=== PATIENT | female | born 1985 | race Caucasian/White ===

== ENCOUNTER 2019-11-26 08:07 | Inpatient (IN) | payer BC ==
[2019-11-25 11:18] VITALS: BMI 44.5
[2019-11-26] MEDS ORDERED: CITRIC ACID-SODIUM CITRATE 15 ML CUP PO ONE (08:26)
[2019-11-26] MEDS ORDERED: LACTATED RINGERS 1,000 ML IV ONE (08:26)
[2019-11-26] MEDS ORDERED: ceFAZolin 3 GM in SODIUM CHLORIDE 0.9% 100 ML IVPB ONE (08:26)
[2019-11-26 08:57] LABS: Basophils % (A) 0 %; Eosinophils # (A) 0.1 k/uL (0-0.7); Eosinophils % (A) 1 %; HCT 37.4 % (34.0-46.0); HGB 11.8 gm/dL (11.4-16.0); Hypochromasia Moderate; Lymphocytes # (A) 1.6 k/uL (1.0-4.8); Lymphocytes % (A) 12 %; MCH 26.1 pg (25.0-35.0); MCHC 31.5 g/dL (31.0-37.0); MCV 82.8 fL (80.0-100.0); Mean Platelet Volume 8.6; Monocytes # (A) 0.6 k/uL (0-1.0); Monocytes % (A) 5 %; Neutrophils # (A) 10.4 k/uL (1.3-7.7); Neutrophils % (A) 80 %; Platelet Count 267 k/uL (150-450); RBC 4.51 m/uL (3.80-5.40); RDW 14.8 % (11.5-15.5); WBC 12.9 k/uL (3.8-10.6)
--- NOTE | 2019-11-26 09:25 | P.HPOB ---
History of Present Illness H&P Date: 11/26/19 Chief Complaint: 40-4/7 weeks, large obstructing uterine fibroid The patient is a 34-year-old 1 para 0 who is admitted at 40-4/7 weeks as established by in vitro fertilization dating parameters. She is admitted for primary low-transverse section and elective fashion secondary to a known very large, approximately 15 cm right lower anterior lateral fibroid which appears to be obstructing any possibility of labor. The head is noted to be below the fibroid from but it is likely to obstruct further progress. Her cervix has remained unfavorable with the head very high in the pelvis. After discussion, the patient has agreed that the likelihood of section in the presence of an induction is very high and has agreed to forego induction in favor of primary low-transverse section. Her has otherwise been uncomplicated. She is Rh- and received RhoGAM at 28 weeks. Group B strep status is negative. Obstetrical history: 1 para 0 with current statistics listed in history of present illness. EDC of 11/22/2019 was established by in vitro fertilization dating parameters. Laboratory workup demonstrates a blood type of B- with a negative antibody screen. Rubella status is immune. The remainder of the laboratory workup was within normal limits. Early Glucola as well as second trimester Glucola was within normal limits. Group B strep status is negative. Gynecologic history: Unremarkable with no history of any infections to include STDs. Review of Systems Review of systems is confined to history of present illness. Past Medical History Past Medical History: GERD/Reflux, Thyroid Disorder Additional Past Medical History / Comment(s): hx migraines, took metformin 08/09- 06/10, " induced thryoid problem", History of Any Multi-Drug Resistant Organisms: None Reported Additional Past Surgical History / Comment(s): IVF Past Anesthesia/Blood Transfusion Reactions: Motion Sickness Past Psychological History: No Psychological Hx Reported Smoking Status: Never smoker Past Alcohol Use History: None Reported Past Drug Use History: None Reported - Past Family History Mother Family Medical History: No Reported History Medications and Allergies Home Medications Medication Instructions Recorded Confirmed Type Levothyroxine Sodium [Synthroid] 50 mcg PO DAILY 11/25/19 11/25/19 History Omeprazole [PriLOSEC] 40 mg PO DAILY 11/25/19 11/25/19 History Pnv No.95/Ferrous Fum/Folic AC 1 each PO DAILY 11/25/19 11/25/19 History [ Multivitamin Tablet] Allergies Allergy/AdvReac Type Severity Reaction Status Date / Time No Known Allergies Allergy Verified 11/25/19 11:10 Exam Vital Signs Temp Pulse Resp BP Pulse Ox 11/26/19 08:18 98.7 F 115 H 16 137/72 98 Intake and Output 11/25/19 11/26/19 11/26/19 22:59 06:59 14:59 Other: Weight 132.903 kg In general, this is a obese white female in no acute distress. Her heart has a regular rhythm and rate without murmur. Her lungs are clear to auscultation bilaterally in all garcia. Her abdomen is gravid, nondistended, has normal active bowel sounds, is soft, nontender, and does have a palpable fibroid on the right lower portion of the uterus anteriorly. Her extremities are without any cyanosis, clubbing, or significant edema and are nontender to palpation bilaterally. Digital cervical examination is deferred. Results Result Diagrams: 11/26/19 08:44 Abnormal Lab Results - Last 24 Hours (Table) 11/26/19 Range/Units 08:44 WBC 12.9 H (3.8-10.6) k/uL Neutrophils # 10.4 H (1.3-7.7) k/uL Assessment and Plan (1) Post-dates Current Visit: Yes Status: Acute Code(s): O48.0 - POST-TERM SNOMED Code(s): 51579466 (2) Obstructed labor Current Visit: Yes Status: Acute Code(s): O66.9 - OBSTRUCTED LABOR, UNSPECIFIED SNOMED Code(s): 703124670 (3) Fibroid uterus Current Visit: Yes Status: Acute Code(s): D25.9 - LEIOMYOMA OF UTERUS, UNSPECIFIED SNOMED Code(s): 85947458 Plan: The patient is admitted for primary low-transverse section secondary to the fibroid which is thought to be obstructive to the labor process. The risks and complications have been thoroughly discussed and the patient has understood and agreed to proceed.
[2019-11-26] MEDS ORDERED: PHENYLEPHRINE-0.9% NACL SYG 1 MG/10 ML SYRINGE ONE (10:01)
[2019-11-26] MEDS ORDERED: MORPHINE SULFATE (PF) 0.3 MG/0.3 ML SYR ONE (10:01)
[2019-11-26] MEDS ORDERED: PROPOFOL 10 MG/ML 20 ML VIAL IV ONE (10:01)
[2019-11-26] MEDS ORDERED: KETOROLAC 15 MG/ML 1 ML VIAL ONE (10:01)
[2019-11-26] MEDS ORDERED: OXYTOCIN 10 UNIT/ML 1 ML VIAL ONE (10:01)
[2019-11-26] MEDS ORDERED: ONDANSETRON 4 MG/2 ML VIAL ONE (10:01)
[2019-11-26] MEDS ORDERED: NALOXONE 0.4 MG/ML 1 ML VIAL IV PRN (11:05)
[2019-11-26] MEDS ORDERED: diphenhydrAMINE 50 MG CAP PO PRN (11:05)
[2019-11-26] MEDS ORDERED: LANOLIN CREAM 5 GM TUBE TOPICAL PRN (11:05)
[2019-11-26] MEDS ORDERED: diphenhydrAMINE 25 MG CAP PO PRN (11:05)
[2019-11-26] MEDS ORDERED: HYDROcodone/APAP 5-325MG 1 EACH TAB PO PRN (11:05)
[2019-11-26] MEDS ORDERED: METOCLOPRAMIDE 5 MG/ML 2 ML VIAL IVP PRN (11:05)
[2019-11-26] MEDS ORDERED: ONDANSETRON 4 MG/2 ML VIAL IVP PRN (11:05)
[2019-11-26] MEDS ORDERED: ZOLPIDEM 5 MG TAB PO PRN (11:05)
[2019-11-26] MEDS ORDERED: diphenhydrAMINE 50 MG/ML 1 ML VIAL IVP PRN ×2 (11:05)
[2019-11-26] MEDS ORDERED: SIMETHICONE 80 MG CHEWABLE PO PRN (11:05)
--- NOTE | 2019-11-26 11:14 | P.OP ---
Date of Procedure: 11/26/19 Preoperative Diagnosis: #1. 40-4/7 weeks, fibroid uterus #2. Likely obstructed labor Postoperative Diagnosis: Same Procedure(s) Performed: #1. Elective primary low-transverse section Anesthesia: spinal Surgeon: Anson Quijano [employer] Operator #1: Elo Manuel Estimated Blood Loss (ml): 530 IV fluids (ml): 1,200 Urine output (ml): 400 Pathology: none sent Condition: stable Disposition: floor Operative Findings: Preoperatively, the patient was known to have a roughly 15 cm right lateral fibroid which was felt to be significantly obstructing the fetus's descent in the pelvis. Her cervix remained unfavorable for multiple weeks on and including this week as she passed her due date. The feeling was that she would likely Armin the attempt at labor secondary to obstructed labor from the fibroid. As result, we discussed primary elective low transverse section to which the patient agreed. She was taken to the operating room where the findings were as noted above with a large roughly 15 cm fibroid filling the right mid and fundal portion of the uterus. She was delivered of a viable 7 lbs. 14 oz. baby girl with Apgars of 9 at 1 minute and 9 at 5 minutes delivered in the occiput posterior position. The placenta was delivered manually, intact, and grossly normal with a grossly normal three-vessel cord. The uterus was left within the abdomen and therefore the ovaries and tubes could not be evaluated. The fibroid and uterus did become significantly smaller and firm with the use of oxytocin. Description of Procedure: The patient was prepped and draped in usual fashion after spinal anesthesia was administered by the anesthesiologist. A Pfannenstiel incision was made and extended of the abdominal cavity without difficulty. The abdominal wall was approximately 8 cm in depth. The Nancy self-retaining retractor was placed and the bladder peritoneum elevated, incised, and reflected distally. A 2 cm incision was made the transverse plane of the lower uterine segment to enter the uterus at which time clear fluid was noted. The incision was extended in both directions with bandage scissors as well as bluntly. The head was encount ered within the incision and delivered up and through the incision where the nose and mouth were thoroughly suctioned. Remainder of the was delivered onto the field where the cord was doubly clamped, cut, and the passed for resuscitative measures with weight and Apgars as noted above. cord blood was collected and a segment of cord then doubly clamped, cut, and set aside should cord gases become necessary. The placenta was removed manually intact and grossly normal as noted above. The interior cavity of the uterus was swept of any remaining placental or membranous fragments. As the fibroid was large enough to make any possibility of removing the uterus through the incision onto the abdomen very difficult or perhaps impossible, the uterus was left within the abdomen and the margins of the incision grasped with Brock clamps. The uterus was closed with 2 layers, the first layer being a running locking stitch of 0 chromic catgut followed by a running imbricating stitch of 0 chromic catgut, each from margin to margin. Hemostasis appeared to be excellent following closure. The posterior cul-de-sac could not be suctioned nor could the tubes and ovaries be evaluated given the large fibroid. The gutters were swept of any remaining blood, fluid, or clot. The incision was reexamined and found to be hemostatic. The parietal peritoneum was loosely reapproximated and any bleeding in that layer or on the muscles made hemostatic with the Bovie. The fascia was closed with 2 running stitches of 0 Vicryl proceeding from the lateral margins to the midpoint. The subcutaneous tissues were irrigated, made hemostatic with the Bovie, and reapproximated with a running stitch of 30 plain catgut. The skin was reapproximated with a running subcuticular stitch of 4-0 Vicryl followed by half-inch Steri-Strips placed with Mastisol. Estimated blood loss for the case was approximately 530 mL. There were no complications. All sponge, instrument, and needle counts were correct. The patient tolerated the procedure well and proceeded to the recovery room in stable condition. Both mother and infant are resting comfortably in recovery.
[2019-11-26] MEDS ORDERED: OXYTOCIN 20 UNITS/1000 ML NS 1,000 ML IV SCH (11:15)
[2019-11-26] MEDS: LACTATED RINGERS 1,000 ML IV SCH ×2 (13:05→22:21)
[2019-11-26] MEDS: KETOROLAC 15 MG/ML 1 ML VIAL IVP PRN (19:40)
[2019-11-27] MEDS: KETOROLAC 15 MG/ML 1 ML VIAL IVP PRN ×2 (01:15→08:09)
[2019-11-27] MEDS: SENNOSIDES-DOCUSATE SODIUM 1 EACH TAB PO SCH ×3 (06:29→19:49)
[2019-11-27] MEDS: LACTATED RINGERS 1,000 ML IV SCH ×2 (06:31→11:34)
[2019-11-27 06:51] LABS: Basophils % (A) 0 %; Eosinophils # (A) 0.1 k/uL (0-0.7); Eosinophils % (A) 1 %; HCT 32.4 % (34.0-46.0); HGB 10.1 gm/dL (11.4-16.0); Hypochromasia Moderate; Lymphocytes # (A) 1.2 k/uL (1.0-4.8); Lymphocytes % (A) 10 %; MCH 26.4 pg (25.0-35.0); MCHC 31.2 g/dL (31.0-37.0); MCV 84.6 fL (80.0-100.0); Mean Platelet Volume 8.4; Monocytes # (A) 0.6 k/uL (0-1.0); Monocytes % (A) 5 %; Neutrophils # (A) 10.4 k/uL (1.3-7.7); Neutrophils % (A) 83 %; Platelet Count 232 k/uL (150-450); RBC 3.83 m/uL (3.80-5.40); RDW 14.9 % (11.5-15.5); WBC 12.5 k/uL (3.8-10.6)
--- NOTE | 2019-11-27 10:18 | P.PN ---
Progress Note - Text Progress Note Date: 11/27/19 Anesthesia Postop day 1 Subjective: Status Post section with Duramorph. Patient seen and examined. Doing well without complaint. VAS 1 out of 10. Denies nausea vomiting or pruritus. Denies fever. Gross lower extremity strength intact. Without apparent anesthetic complications. Objective: Vital signs reviewed Heart: Regular Rate Lungs: Good chest excursion Abdomen: Appears nondistended Assessment: Status post with Duramorph postop day 1 Plan: Continue current care with your medical management. Anticipated change in pain needs today, patient understands
--- NOTE | 2019-11-27 10:44 | P.PNOBGPC ---
Subjective - Subjective Patient reports: Reports appetite normal, Reports voiding normally, Reports pain well controlled, Reports ambulating normally : doing well, nursing well Objective - Vital Signs Latest vital signs: Vital Signs Temp Pulse Resp BP Pulse Ox 11/27/19 08:00 98.3 F 87 16 136/70 99 11/27/19 04:00 98.5 F 98 16 106/60 98 11/27/19 00:00 98.7 F 93 16 105/63 100 11/26/19 20:00 98.2 F 79 16 103/58 99 11/26/19 16:00 96.3 F L 79 14 130/72 98 11/26/19 13:00 97.1 F L 70 16 103/85 98 11/26/19 12:37 71 16 121/71 100 11/26/19 12:07 61 16 110/58 100 11/26/19 11:50 64 16 99/68 98 11/26/19 11:37 65 16 101/72 99 11/26/19 11:22 71 16 99/60 98 11/26/19 11:07 97.1 F L 74 16 103/58 98 Intake and Output 11/26/19 11/27/19 11/27/19 22:59 06:59 14:59 Output Total 700 600 Balance -700 -600 Output: Urine 700 600 Straight 500 Uretheral ([place]) 700 - Exam Extremities: Present: normal Abdomen: Present: normal appearance, soft. Absent: distention, tenderness Incision: Present: normal, dry, intact Uterus: Present: normal, firm (The uterine fundus is tonic and minimally tender low the umbilicus while the large fundal fibroid is noted in the right upper aspect of the uterus.) - Labs Labs: Abnormal Lab Results - Last 24 Hours (Table) 11/27/19 Range/Units 06:06 WBC 12.5 H (3.8-10.6) k/uL Hgb 10.1 L (11.4-16.0) gm/dL Hct 32.4 L (34.0-46.0) % Neutrophils # 10.4 H (1.3-7.7) k/uL Assessment and Plan (1) Post-dates Current Visit: Yes Status: Acute Code(s): O48.0 - POST-TERM SNOMED Code(s): 01319887 (2) Obstructed labor Current Visit: Yes Status: Acute Code(s): O66.9 - OBSTRUCTED LABOR, UNSPECIFIED SNOMED Code(s): 963843751 (3) Fibroid uterus Current Visit: Yes Status: Acute Code(s): D25.9 - LEIOMYOMA OF UTERUS, UNSPECIFIED SNOMED Code(s): 37017848 (4) S/P section Current Visit: Yes Status: Acute Code(s): Z98.891 - HISTORY OF UTERINE SCAR FROM PREVIOUS SURGERY SNOMED Code(s): 332301652 Plan: Continue routine postoperative and care. I would anticipate discharge home tomorrow pending no complications. I have strongly encouraged the patient and the hallways routinely.
[2019-11-27] MEDS: HYDROcodone/APAP 7.5-325MG 1 EACH TAB PO PRN (12:26)
[2019-11-27] MEDS: IBUPROFEN 600 MG TAB PO PRN ×2 (16:12→22:02)
[2019-11-27] MEDS: ACETAMINOPHEN TAB 325 MG TAB PO PRN (19:50)
[2019-11-28] MEDS: HYDROcodone/APAP 7.5-325MG 1 EACH TAB PO PRN ×2 (01:57→07:49)
[2019-11-28] MEDS: ACETAMINOPHEN TAB 325 MG TAB PO PRN (01:58)
[2019-11-28] MEDS: IBUPROFEN 600 MG TAB PO PRN ×2 (04:46→10:53)
[2019-11-28] MEDS: SENNOSIDES-DOCUSATE SODIUM 1 EACH TAB PO SCH (07:50)
[2019-11-28 08:05] VITALS: BP 116/69; PULSE 89; RESP 14; TEMP 97.5
--- NOTE | 2019-11-28 10:35 | P.DS ---
Providers Date of admission: 11/26/19 08:07 Expected date of discharge: 11/28/19 Attending physician: Anson Quijano Primary care physician: Stated None - Discharge Diagnosis(es) (1) Post-dates Current Visit: Yes Status: Acute (2) Obstructed labor Current Visit: Yes Status: Acute (3) Fibroid uterus Current Visit: Yes Status: Acute (4) S/P section Current Visit: Yes Status: Acute Hospital Course: The patient is a 34-year-old 1 para 0 who is admitted at 40-4/7 weeks by good dating parameters, in vitro fertilization dating parameters. She is admitted for primary low-transverse section electively secondary to a known 15 cm right mid anterior fibroid which appears to be obstructing any possibility of labor as the head has not descended in the pelvis. After long discussion we have opted to proceed with primary low-transverse section. She was taken to the operating room where the findings were confirmed. She was delivered of a viable 7 lbs. 14 oz. baby girl with Apgars of 9 at 1 minute and 9 at 5 minutes. Her and postoperative courses have been unremarkable with vital signs remaining stable and her temperature was afebrile throughout. She was deemed stable for discharge on postoperative and day #2 and was discharged home to follow-up in the office in 2 weeks for an incision check and 6 weeks routinely. Discharge instructions included calling for any significantly increased bleeding or foul-smelling lochia, significantly increased fever or abdominal pain, perineal complaints, breast complaints, incisional complaints, or anything else that concerned her. She was additionally instructed to have nothing in the vagina for at least 6 weeks time to include intercourse and to abstain from any heavy lifting over the same period of time. She was also instructed to abstain from driving until off of all pain medications or 2 weeks' time, whichever came first. She understood all of her instructions and agrees to follow up as noted above. Discharge medications included continued vitamins as she has opted to breast- feed. She was additionally she's [id number] analgesic pain medications as needed and was provided with a prescription for [place] 5/325 mg, 1-2 by mouth every 6 hours when necessary pain, #20 dispensed with no refills. Maternal blood type is B- and cord blood was sent for evaluation for the necessity of RhoGAM prior to discharge. Rubella status is immune. Discharge hemoglobin and hematocrit were 10.1 and 32.4 respectively. Procedures: #1. Primary low-transverse section Patient Condition at Discharge: Stable Plan - Discharge Summary Discharge Rx Participant: No New Discharge Prescriptions: No Action Omeprazole [PriLOSEC] 40 mg PO DAILY Levothyroxine Sodium [Synthroid] 50 mcg PO DAILY Pnv No.95/Ferrous Fum/Folic AC [ Multivitamin Tablet] 1 each PO DAILY Discharge Medication List Levothyroxine Sodium [Synthroid] 50 mcg PO DAILY 11/25/19 [History] Omeprazole [PriLOSEC] 40 mg PO DAILY 11/25/19 [History] Pnv No.95/Ferrous Fum/Folic AC [ Multivitamin Tablet] 1 each PO DAILY 11/25/19 [History] Follow up Appointment(s)/Referral(s): Anson Quijano MD [STAFF PHYSICIAN] - 2 Weeks Discharge Disposition: HOME SELF-CARE
== END 2019-11-28 12:15 | disposition home or self-care (01) | DRG 788 ==
LOC: 4FBP 08:07
PROVIDERS: ADMIT Obstetrics & Gynecology; ATTEND Obstetrics & Gynecology
PROC: 10D00Z1 Extraction of Products of Conception, Low, Open Approach (ICD-10-PCS; principal; 2019-11-26 10:19)
DX: O65.5 Obstructed labor due to abnormality of maternal pelvic organs (principal); O99.214 Obesity complicating childbirth; E66.9 Obesity, unspecified; D25.9 Leiomyoma of uterus, unspecified; O48.0 Post-term pregnancy; O34.13 Maternal care for benign tumor of corpus uteri, third trimester; K21.9 Gastro-esophageal reflux disease without esophagitis; O99.62 Diseases of the digestive system complicating childbirth; O99.284 Endocrine, nutritional and metabolic diseases complicating childbirth; Z3A.40 40 weeks gestation of pregnancy; Z37.0 Single live birth; Z79.890 Hormone replacement therapy; Z79.899 Other long term (current) drug therapy; Z86.69 Personal history of other diseases of the nervous system and sense organs
CPT/HCPCS: 85025; 86850; 86900; 86901

== ENCOUNTER 2021-03-14 15:57 | Outpatient (CLI) | payer BC | END 2021-03-14 16:08 | disposition home or self-care (01) | LOC: FBPOP 15:57 | PROVIDERS: ATTEND Obstetrics & Gynecology | DX: Z53.9 Procedure and treatment not carried out, unspecified reason (principal) ==